=== PATIENT | male | born 1960 | race Hispanic/Latino ===

== ENCOUNTER 2018-02-14 15:04 | Emergency (ER) | payer BC ==
--- OUTSIDE RECORDS SUMMARY | 2018-02-14 15:09 | XMS REPORT ---
:1960 [facility] Address [address] [place] [place] [address] Care Team Providers Name Role Phone JENNY VILLA Unavailable Unavailable Problems This patient has no known problems. Allergies, Adverse Reactions, Alerts This patient has no known allergies or adverse reactions. Medications This patient has no known medications. Results Test Description Test Time Test Comments Text Results Atomic Results Result Comments POCT-GLUCOSE METER 2016-11-27 11:23:00 Test Item Value Reference Range Comments POC-GLUCOSE METER (BEAKER) (test 180 mg/dL 70-110 TESTED AT [address] qsai=7471) [facility] [address] POCT-GLUCOSE [id number] 07:20:00 Test Item Value Reference Range Comments POC-GLUCOSE METER (BEAKER) 206 mg/dL 70-110 TESTED AT [address] (test wuzh=9395) [facility] [address] CBC W/PLT COUNT & AUTO [id number] 06:56:00 Test Item Value Reference Range Comments WHITE BLOOD CELL COUNT (BEAKER) (test lotg=504) 7.9 K/ L 4.0-10.0 RED BLOOD CELL COUNT (BEAKER) (test inuj=874) 5.24 M/ L 4.20-5.80 HEMOGLOBIN (BEAKER) (test kdle=357) 16.1 GM/DL 13.0-16.8 HEMATOCRIT (BEAKER) (test rifd=830) 49.2 % 40.0-50.0 MEAN CORPUSCULAR VOLUME (BEAKER) (test aojb=422) 93.9 fL 82.0-98.0 MEAN CORPUSCULAR HEMOGLOBIN (BEAKER) (test 30.7 pg 27.0-33.0 nxab=931) MEAN CORPUSCULAR HEMOGLOBIN CONC (BEAKER) (test 32.7 GM/DL 32.0-36.0 ijka=559) RED CELL DISTRIBUTION WIDTH (BEAKER) (test 11.9 % 10.3-14.2 guyv=143) PLATELET COUNT (BEAKER) (test zsas=464) 136 K/CU MM 150-430 MEAN PLATELET VOLUME (BEAKER) (test aqch=876) 8.6 fL 6.5-10.5 NUCLEATED RED BLOOD CELLS (BEAKER) (test 0 /100 WBC 0-0 vxio=426) NEUTROPHILS RELATIVE PERCENT (BEAKER) (test 49 % cjep=309) LYMPHOCYTES RELATIVE PERCENT (BEAKER) (test 41 % fzkq=611) MONOCYTES RELATIVE PERCENT (BEAKER) (test 7 % jbld=219) EOSINOPHILS RELATIVE PERCENT (BEAKER) (test 2 % whgj=133) BASOPHILS RELATIVE PERCENT (BEAKER) (test 1 % krsz=266) NEUTROPHILS ABSOLUTE COUNT (BEAKER) (test 3.84 K/ L 1.80-8.00 jkih=453) LYMPHOCYTES ABSOLUTE COUNT (BEAKER) (test 3.27 K/ L 1.48-4.50 krvh=299) MONOCYTES ABSOLUTE COUNT (BEAKER) (test 0.58 K/ L 0.00-1.30 ffwh=445) EOSINOPHILS ABSOLUTE COUNT (BEAKER) (test 0.14 K/ L 0.00-0.50 wwor=548) BASOPHILS ABSOLUTE COUNT (BEAKER) (test 0.07 K/ L 0.00-0.20 fjne=443) 0.00BASI METABOLIC [id number] 06:43:00 Test Item Value Reference Range Comments SODIUM (BEAKER) (test 139 meq/L 136-145 mvca=271) POTASSIUM (BEAKER) (test 4.1 meq/L 3.5-5.1 ctem=186) CHLORIDE (BEAKER) (test 107 meq/L 98-107 jvvn=559) CO2 (BEAKER) (test 24 meq/L 22-29 vzej=822) BLOOD UREA NITROGEN 14 mg/dL 7-21 (BEAKER) (test xcgf=151) CREATININE (BEAKER) (test 0.84 mg/dL 0.57-1.25 xuzn=852) GLUCOSE RANDOM (BEAKER) 230 mg/dL 70-105 (test giea=765) CALCIUM (BEAKER) (test 9.0 mg/dL 8.4-10.2 gkbd=822) EGFR (BEAKER) (test mL/min/1.73 sq m INSUFFICIENT CLINICAL DATA aniy=8033) TO CALCULATE ESTIMATED GFR. POCT-GLUCOSE [id number] 21:38:00 Test Item Value Reference Range Comments POC-GLUCOSE METER (BEAKER) 226 mg/dL 70-110 TESTED AT [facility] [address] [facility] (test ajgo=3123) [facility] [address] CBC W/PLT COUNT & AUTO [id number] 15:49:00 Test Item Value Reference Range Comments WHITE BLOOD CELL COUNT (BEAKER) (test fiju=458) 6.6 K/ L 4.0-10.0 RED BLOOD CELL COUNT (BEAKER) (test egfm=802) 4.76 M/ L 4.20-5.80 HEMOGLOBIN (BEAKER) (test orew=862) 15.4 GM/DL 13.0-16.8 HEMATOCRIT (BEAKER) (test gsml=205) 44.1 % 40.0-50.0 MEAN CORPUSCULAR VOLUME (BEAKER) (test tvdb=433) 92.6 fL 82.0-98.0 MEAN CORPUSCULAR HEMOGLOBIN (BEAKER) (test 32.4 pg 27.0-33.0 bgus=039) MEAN CORPUSCULAR HEMOGLOBIN CONC (BEAKER) (test 34.9 GM/DL 32.0-36.0 asro=623) RED CELL DISTRIBUTION WIDTH (BEAKER) (test 11.7 % 10.3-14.2 dext=779) PLATELET COUNT (BEAKER) (test gywa=434) 122 K/CU MM 150-430 MEAN PLATELET VOLUME (BEAKER) (test oaqw=669) 8.6 fL 6.5-10.5 NUCLEATED RED BLOOD CELLS (BEAKER) (test 0 /100 WBC 0-0 fhwk=446) NEUTROPHILS RELATIVE PERCENT (BEAKER) (test 48 % xptr=923) LYMPHOCYTES RELATIVE PERCENT (BEAKER) (test 44 % lvqi=686) MONOCYTES RELATIVE PERCENT (BEAKER) (test 6 % wgiq=761) EOSINOPHILS RELATIVE PERCENT (BEAKER) (test 1 % ojix=041) BASOPHILS RELATIVE PERCENT (BEAKER) (test 1 % ijje=760) NEUTROPHILS ABSOLUTE COUNT (BEAKER) (test 3.17 K/ L 1.80-8.00 ubra=589) LYMPHOCYTES ABSOLUTE COUNT (BEAKER) (test 2.92 K/ L 1.48-4.50 kpiy=509) MONOCYTES ABSOLUTE COUNT (BEAKER) (test 0.40 K/ L 0.00-1.30 ugkv=275) EOSINOPHILS ABSOLUTE COUNT (BEAKER) (test 0.06 K/ L 0.00-0.50 ycca=877) BASOPHILS ABSOLUTE COUNT (BEAKER) (test 0.07 K/ L 0.00-0.20 kiux=434) 0.00(MANUAL DIFFERENTIAL)2016-11-26 15:49:00 Test Item Value Reference Range Comments TOTAL COUNTED (BEAKER) (test ezuc=4826) WBC MORPHOLOGY (BEAKER) (test cuvn=625) Normal PLT MORPHOLOGY (BEAKER) (test qwqj=945) Normal RBC MORPHOLOGY (BEAKER) (test uqlv=047) Normal HEMOGLOBIN [id number] 13:12:00 Test Item Value Reference Range Comments HEMOGLOBIN A1C (BEAKER) (test gnkp=224) 10.1 % 4.3-6.1 BASIC METABOLIC [id number] 09:47:00 Test Item Value Reference Range Comments SODIUM (BEAKER) (test 137 meq/L 136-145 cmxb=637) POTASSIUM (BEAKER) (test 4.0 meq/L 3.5-5.1 gggp=598) CHLORIDE (BEAKER) (test 105 meq/L 98-107 wkmo=939) CO2 (BEAKER) (test 24 meq/L 22-29 qaih=586) BLOOD UREA NITROGEN 15 mg/dL 7-21 (BEAKER) (test ubwd=513) CREATININE (BEAKER) (test 0.80 mg/dL 0.57-1.25 suxp=148) GLUCOSE RANDOM (BEAKER) 228 mg/dL 70-105 (test oynh=230) CALCIUM (BEAKER) (test 8.8 mg/dL 8.4-10.2 kmng=613) EGFR (BEAKER) (test mL/min/1.73 sq m INSUFFICIENT CLINICAL DATA uztn=2500) TO CALCULATE ESTIMATED GFR. SEDIMENTATION [id number] 09:40:00 Test Item Value Reference Range Comments SEDIMENTATION RATE, ERYTHROCYTE (BEAKER) (test 10 mm/HR 0-20 xhcl=057) POCT-GLUCOSE [id number] 08:03:00 Test Item Value Reference Range Comments POC-GLUCOSE METER (BEAKER) 224 mg/dL 70-110 TESTED AT [facility] [address] (test enbm=8789) [place] [address] VITAMIN B12 AND [id number] 07:49:00 Test Item Value Reference Range Comments VITAMIN B12 (BEAKER) (test gdbn=035) 405 pg/mL 213-816 FOLATE (BEAKER) (test wtxh=504) 8.9 ng/mL >=7.0 Effective 05/28/2014: Folate Reference Range ChangeNew: >=7.0 Previous: & gt;=5.4TSH/FREE T4 IF [id number] 07:37:00 Test Item Value Reference Range Comments THYROID STIMULATING HORMONE (BEAKER) (test 1.28 uIU/mL 0.35-4.94 hiqm=911) LIPID [id number] 06:56:00 Test Item Value Reference Range Comments TRIGLYCERIDES (BEAKER) (test taru=129) 258 mg/dL CHOLESTEROL (BEAKER) (test hqsj=679) 182 mg/dL HDL CHOLESTEROL (BEAKER) (test zurj=333) 24 mg/dL LDL CHOLESTEROL CALCULATED (BEAKER) (test 106 mg/dL eyoq=253) Triglyceride Reference Range: Low Risk <150 Borderline 150- 199 High Risk 200-499 Very High Risk >=500Cholesterol Reference Range: Low Risk <200 Borderline 200-239 High Risk > 240HDL Cholesterol Reference Range: Low Risk >=60 High Risk <40LDL Cholesterol Reference Range: Optimal <100 Near Optimal 100-129 Borderline 130-159 High 160-189 Very High >=190
--- OUTSIDE RECORDS SUMMARY | 2018-02-14 15:09 | XMS REPORT | Clinical Summary ---
:1960 Author Organization [facility] Address [address] [place] [address] Phone Care Team Providers Name Role Phone Unavailable Primary Care Provider Unavailable Allergies No Known Allergies Current Medications No known medications Active Problems Problem Noted Date Essential hypertension 11/27/2016 Type 2 diabetes mellitus without complication (HCC) 11/27/2016 Acute CVA (cerebrovascular accident) (HCC) 11/26/2016 Social History Tobacco Use Types Packs/Day Years Used Date Former Smoker Cigarettes 1 40 07/11/1976 - 11/26/2016 Tobacco Cessation: Counseling Given: Yes Sex Assigned at Date Recorded Not on file Last Filed Vital Signs Not on file Plan of Treatment Not on file Results Not on fileafter 02/13/2017
--- NOTE | 2018-02-14 15:27 | RAD REPORT ---
EXAM DESCRIPTION: CT - Ct Stroke Brain Wo Cont - 02/14/2018 3:18 pm CLINICAL HISTORY: Left-sided numbness COMPARISON: November 2016 TECHNIQUE: Computed axial tomography of the head was obtained. IV contrast was not requested. All CT scans are performed using dose optimization technique as appropriate and may include automated exposure control or mA/KV adjustment according to patient size. FINDINGS: An intracranial bleed is not seen . The ventricles are normal in caliber. No extra-axial fluid collection is noted. Low-density areas are present within the right temporal, right occipital and right parietal lobes. Th ey have the appearance of being chronic. Fluid within the sinuses/ mastoids is not seen. 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 If the patient continues to have symptoms to suggest an acute infarct MRI of the brain would be recom mended. The exam was discussed with Dr. Chase in the emergency room February 14, 2018 3:20 p.m.
[2018-02-14 15:42] LABS: Absolute Monocytes 0.4 K/uL (0.1-1.3); Absolute Neutrophil 4.1 K/uL (1.8-8.0); Basophils % 0.6 % (0-1.3); Eosinophils % 1.2 % (0-4.4); Hematocrit 46.2 % (39.6-49.0); Lymphocytes % 38.8 % (15.3-44.8); MCH 32.4 pg (27.0-35.0); MCV 93.1 fL (80-100); MPV 9.1 fL (7.6-11.3); Monocytes % 4.9 % (3.3-12.3); RBC Red Blood Cell Count 4.96 M/uL (4.33-5.43)
[2018-02-14 15:45] LABS: Protime INR 0.97
[2018-02-14 15:57] LABS: Magnesium 1.6 mg/dL (1.8-2.4); Potassium 3.7 mmol/L (3.5-5.1)
--- NOTE | 2018-02-14 18:14 | RAD REPORT ---
EXAM DESCRIPTION: Tiffanie Single View02/14/2018 3:42 pm CLINICAL HISTORY: Chest pain COMPARISON: November 2016 FINDINGS: The lungs appear clear of acute infiltrate. The heart is normal size IMPRESSION: No acute abnormalities displayed
--- NOTE | 2018-02-14 18:19 | ER ---
Nurse's Notes [facility] Emergency Department Name: Santi Virgen Age: 58 yrs Sex: Male : 1960 Arrival Date: 02/14/2018 Time: 15:06 Bed 16 Private MD: None, None Diagnosis: Transient cerebral ischemic attack, unspecified Presentation: 02/14 15:09 Presenting complaint: Patient states: Sudden dizziness, slurred speech, and left arm hb numbness while driving to work at 0700 today. Hx CVA 1 year ago. Transition of care: patient was not received from another setting of care. 15:09 Method Of Arrival: Ambulatory hb 15:13 An acute neurological deficit is present. The charge nurse has been notified. The hb patients blood glucose was checked before arriving to the hospital and was found to be normal. Onset of symptoms was February 14, 2018 at 07:00. Risk Assessment: Do you want to hurt yourself or someone else? Patient reports no desire to harm self or others. Care prior to arrival: None. 15:13 Acuity: YEMI 2 hb 15:23 Initial Sepsis Screen: Does the patient meet any 2 criteria? No. Patient's initial rb1 sepsis screen is negative. Does the patient have a suspected source of infection? No. Patient's initial sepsis screen is negative. Triage Assessment: 15:23 The onset of the patients symptoms was February 14, 2018 at 07:00. rb1 Stroke Activation: Symptom onset > 6 hours Physician: Stroke Attending; Name: ; Notified At: ; Arrived At: Physician: Chief Stroke Resident; Name: ; Notified At: ; Arrived At: Physician: Stroke Resident; Name: ; Notified At: ; Arrived At: Physician: ED Attending; Name: ; Notified At: ; Arrived At: Physician: ED Resident; Name: ; Notified At: ; Arrived At: Historical: - Allergies: 15:23 No Known Allergies; hb - Home Meds: 15:23 metformin 500 mg Oral tab 2 tabs 2 times per day [Active]; clopidogrel 75 mg oral tab 1 rb1 tab once daily [Active]; atorvastatin 40 mg oral tab 1 tab once daily [Active]; losartan 100 mg oral tab 1 tab once daily [Active]; - PMHx: 15:23 CVA; Diabetes - NIDDM; Hyperlipidemia; Hypertension; hb - PSHx: 15:23 Appendectomy; hb - Immunization history:: Adult Immunizations up to date. - Social history:: Smoking status: Patient/guardian denies using tobacco. - Ebola Screening: : Patient negative for fever greater than or equal to 101.5 degrees Fahrenheit, and additional compatible Ebola Virus Disease symptoms. - Family history:: not pertinent. - Hospitalizations: : No recent hospitalization is reported. Screenin:22 Abuse screen: Denies threats or abuse. Denies injuries from another. Nutritional hb screening: No deficits noted. Tuberculosis screening: No symptoms or risk factors identified. 15:24 Fall Risk Secondary diagnosis (15 points) CVA, IV access (20 points). Ambulatory Aid- rb1 None/Bed Rest/Nurse Assist (0 pts). Gait- Normal/Bed Rest/Wheelchair (0 pts) Mental Status- Oriented to own ability (0 pts). Total Boss Fall Scale indicates Low Risk Score (25-44 pts). Fall prevention measures have been instituted. Side Rails Up X 2 Placed close to Nursing Station 1:1 attendant Assigned to Pt. Frequent Obs/Assesments occuring As available Patient and Family Educated on Fall Prevention Program and strategies. Assessment: 15:10 Reassessment: BGL 143. hb 15:13 Reassessment: Code Stroke called. hb 15:13 Reassessment: Pt transported to CT via wheelchair with ANGELA Ken RN. hb 15:22 Reassessment: Back from CT. Pt reports symptoms have improved greatly and have almost ss resolved. 15:23 Reassessment: Dr. Chase at bedside to assess patient. ss 15:23 General: Appears in no apparent distress. comfortable, Behavior is calm, cooperative. rb1 Pain: Denies pain. Neuro: Level of Consciousness is awake, alert, obeys commands, Oriented to person, place, time, situation, Budget Analyst are equal bilaterally Moves all extremities. Gait is steady, Speech is normal, Facial symmetry appears normal, Pupils are PERRLA, Reports dizziness and numbness to the left arm around 0700 this morning. Pt. stated, "I feel great now. I feel normal.". Cardiovascular: Capillary refill < 3 seconds is brisk in bilateral fingers Rhythm is sinus rhythm. Respiratory: Airway is patent Respiratory effort is even, unlabored, Respiratory pattern is regular, symmetrical. GI: No signs and/or symptoms were reported involving the gastrointestinal system. : No signs and/or symptoms were reported regarding the genitourinary system. Derm: Skin is dry, Skin is normal, Skin temperature is warm. Musculoskeletal: Range of motion: intact in all extremities. 15:23 T-PA (Activase) Screening: Contraindications: Patient reports onset of signs and rb1 symptoms of stroke greater than 6 hours ago: Yes. 15:40 Patient has been NPO before screening. The patient is alert, and able to follow rb1 commands. The patient does not exhibit slurred or garbled speech. The patient is not exhibiting difficulty speaking. The patient does not exhibit difficulty understanding words. The patient is able to swallow own secretions with no drooling or need for suction. Patient tolerated one teaspoon of water. No drooling, immediate coughing, gurgling, or clearing of the throat was noted. The patient tolerated 90mL of water. No drooling, immediate coughing, gurgling, or clearing of the throat was noted. The patient passed the bedside swallow screening. Oral medications may be given as ordered. Contact Physician for further diet orders. Provider notified of bedside swallow screening results: Romain Chase MD. 16:38 Reassessment: Patient appears in no apparent distress at this time. No changes from rb1 previously documented assessment. 17:36 Reassessment: Patient appears in no apparent distress at this time. Patient and/or rb1 family updated on plan of care and expected duration. Pain level reassessed. Patient is alert, oriented x 3, equal unlabored respirations, skin warm/dry/pink. Patient denies pain at this time. Patient states feeling better. 18:26 Reassessment: Patient appears in no apparent distress at this time. No changes from rb1 previously documented assessment. Family at bedside. Vital Signs: 15:11 BP 155 / 93; Pulse 88; Resp 16; Temp 98.2; Pulse Ox 98% ; Pain 0/10; hb 15:23 Weight 83.91 kg; Height 5 ft. 8 in. (172.72 cm) (R); rb1 16:00 BP 140 / 83; Pulse 80; Resp 17; Pulse Ox 97% on R/A; Pain 0/10; rb1 17:00 BP 131 / 79; Pulse 73; Resp 18; Pulse Ox 97% on R/A; rb1 17:30 BP 142 / 82; Pulse 72; Resp 18; Pulse Ox 98% on R/A; Pain 0/10; rb1 18:28 BP 148 / 83; Pulse 69; Resp 17; Pulse Ox 99% on R/A; rb1 15:23 Body Mass Index 28.13 (83.91 kg, 172.72 cm) rb1 [place] Coma Score: 15:23 Eye Response: spontaneous(4). Verbal Response: oriented(5). Motor Response: obeys rb1 commands(6). Total: 15. 16:23 Eye Response: spontaneous(4). Verbal Response: oriented(5). Motor Response: obeys rb1 commands(6). Total: 15. 17:23 Eye Response: spontaneous(4). Verbal Response: oriented(5). Motor Response: obeys rb1 commands(6). Total: 15. 18:23 Eye Response: spontaneous(4). Verbal Response: oriented(5). Motor Response: obeys rb1 commands(6). Total: 15. NIH Stroke Scale Scores: 15:23 NIHSS Score: 0 rb1 ED Course: 15:06 Patient arrived in ED. mr 15:07 None, None is Private Physician. mr 15:13 Romain Chase MD is Attending Physician. rn 15:20 Triage completed. hb 15:20 Inserted saline lock: 22 gauge in left antecubital area, using aseptic technique. Blood ss collected. 15:23 Patient has correct armband on for positive identification. Bed in low position. Call rb1 light in reach. Side rails up X2. appeals referee on. Pulse ox on. NIBP on. 15:23 Arm band placed on left wrist. rb1 15:28 EKG done, by civil engineering technician. reviewed by Romain Chase MD. tc 15:33 Cira Tao, RN is Primary Nurse. rb1 15:43 X-ray completed. Portable x-ray completed in exam room. Patient tolerated procedure bb2 well. 18:29 No provider procedures requiring assistance completed. IV discontinued, intact, rb1 bleeding controlled, No redness/swelling at site. Pressure dressing applied. Administered Medications: No medications were administered Point of Care Testing: Blood Glucose: 15:10 Blood Glucose: 143 mg/dL; hb 15:24 Blood Glucose: 165 mg/dL; rb1 Ranges: Outcome: 18:18 Discharge ordered by . rn 18:29 Discharged to home ambulatory, with family. rb1 18:29 Condition: stable 18:29 Discharge instructions given to patient, Instructed on discharge instructions, follow up and referral plans. Demonstrated understanding of instructions, follow-up care, Prescriptions given X none 18:30 Patient left the ED. rb1 NIH Stroke Scale - NIH Stroke Score Date: 02/14/2018 Time: 15:23 Total Score = 0 1a. Level of Consciousness (LOC) - 0(Alert) 1b. Level of Consciousness (LOC) (Year \\T\\ Age) - 0(Both) 1c. LOC Commands (Open \\T\\ Closes Eyes/Medical Customer Service Representative) - 0(Both) 2. Best Gaze (Lateral Gaze Paresis) - 0(Normal) 3. Visual Field Loss - 0(No visual loss) 4. Facial Palsy - 0(Normal) 5a. Left Arm: Motor (10-second hold) - 0(No drift) 5b. Right Arm: Motor (10-second hold) - 0(No drift) 6a. Left Leg: Motor (5-second hold - always test supine) - 0(No drift) 6b. Right Leg: Motor (5-second hold - always test supine) - 0(No drift) 7. Limb Ataxia (finger/nose \\T\\ heel/saldana - test with eyes open) - 0(Absent) 8. Sensory Loss (pinprick arms/legs/face) - 0(Normal) 9. Best Language: Aphasia (description/naming/reading) - 0(No aphasia) 10. Dysarthria (speech clarity - read or repeat words) - 0(Normal) 11. Extinction and Inattention (visual/tactile/auditory/spatial/personal) - 0(No abnormality) Initials: rb1 Signatures: Nadja Owusu Roman, MD MD rn Smirch, Shelby, RN RN Nisha Bella, public health staff nurse EKG Ttc Cira Tao RN RN rb1 Annette Anderson RN RN hb Annette Haynes2 Corrections: (The following items were deleted from the chart) 15:20 15:11 Presenting complaint: hb hb 15: 15:23 Home Meds: atorvastatin Oral; hb rb1 : 15:23 Home Meds: metformin 500 mg Oral tab 2 times per day; hb rb1
--- NOTE | 2018-02-14 18:19 | EDPHYS ---
Physician Documentation [facility] Name: Santi Virgen Age: 58 yrs Sex: Male : 1960 Arrival Date: 02/14/2018 Time: 15:06 Bed 16 Private MD: None, None ED Physician Romain Chase HPI: 02/14 18:10 This 58 yrs old Male presents to ER via Ambulatory with complaints of Numbness rn Of Arm, Dizziness. 18:11 The patient presents to the emergency department with weakness of the left upper rn extremity, a speech or higher order brain function problem, paresthesias of the left upper extremity. Onset: The symptoms/episode began/occurred this morning. Severity of symptoms: At their worst the symptoms were mild in the emergency department the symptoms have resolved. Current symptoms: Currently, the patient is not experiencing any symptoms. The patient has experienced a previous episode. Reports began this morning with slurred speech, numbness and slight weakness of LUE, + dizziness, similar symptoms to previous TIA, on plavix, now back to normal, asymptomatic. . Historical: - Allergies: 15:23 No Known Allergies; hb - Home Meds: 15:23 metformin 500 mg Oral tab 2 tabs 2 times per day [Active]; clopidogrel 75 mg oral tab 1 rb1 tab once daily [Active]; atorvastatin 40 mg oral tab 1 tab once daily [Active]; losartan 100 mg oral tab 1 tab once daily [Active]; - PMHx: 15:23 CVA; Diabetes - NIDDM; Hyperlipidemia; Hypertension; hb - PSHx: 15:23 Appendectomy; hb - Immunization history:: Adult Immunizations up to date. - Social history:: Smoking status: Patient/guardian denies using tobacco. - Ebola Screening: : Patient negative for fever greater than or equal to 101.5 degrees Fahrenheit, and additional compatible Ebola Virus Disease symptoms. - Family history:: not pertinent. - Hospitalizations: : No recent hospitalization is reported. ROS: 18:11 Constitutional: Negative for fever, chills, and weight loss, Eyes: Negative for injury, rn pain, redness, and discharge, Neck: Negative for injury, pain, and swelling, Cardiovascular: Negative for chest pain, palpitations, and edema, Respiratory: Negative for shortness of breath, cough, wheezing, and pleuritic chest pain, Abdomen/GI: Negative for abdominal pain, nausea, vomiting, diarrhea, and constipation, MS/Extremity: Negative for injury and deformity, Skin: Negative for injury, rash, and discoloration, Neuro: Negative for headache, weakness, numbness, tingling, and seizure. Exam: 18:16 Constitutional: This is a well developed, well nourished patient who is awake, alert, rn and in no acute distress. Head/Face: Normocephalic, atraumatic. Eyes: Pupils equal round and reactive to light, extra-ocular motions intact. Lids and lashes normal. Conjunctiva and sclera are non-icteric and not injected. Cornea within normal limits. Periorbital areas with no swelling, redness, or edema. Neck: Trachea midline, no thyromegaly or masses palpated, and no cervical lymphadenopathy. Supple, full range of motion without nuchal rigidity, or vertebral point tenderness. No Meningismus. Cardiovascular: Regular rate and rhythm with a normal S1 and S2. No gallops, murmurs, or rubs. Normal PMI, no JVD. No pulse deficits. Respiratory: Lungs have equal breath sounds bilaterally, clear to auscultation and percussion. No rales, rhonchi or wheezes noted. No increased work of breathing, no retractions or nasal flaring. Abdomen/GI: Soft, non-tender, with normal bowel sounds. No distension or tympany. No guarding or rebound. No evidence of tenderness throughout. Skin: Warm, dry with normal turgor. Normal color with no rashes, no lesions, and no evidence of cellulitis. MS/ Extremity: Pulses equal, no cyanosis. Neurovascular intact. Full, normal range of motion. Equal circumference. Neuro: Awake and alert, GCS 15, oriented to person, place, time, and situation. Cranial nerves II-XII grossly intact. Motor strength 5/5 in all extremities. Sensory grossly intact. Cerebellar exam normal. Normal gait. Vital Signs: 15:11 BP 155 / 93; Pulse 88; Resp 16; Temp 98.2; Pulse Ox 98% ; Pain 0/10; hb 15:23 Weight 83.91 kg; Height 5 ft. 8 in. (172.72 cm) (R); rb1 16:00 BP 140 / 83; Pulse 80; Resp 17; Pulse Ox 97% on R/A; Pain 0/10; rb1 17:00 BP 131 / 79; Pulse 73; Resp 18; Pulse Ox 97% on R/A; rb1 17:30 BP 142 / 82; Pulse 72; Resp 18; Pulse Ox 98% on R/A; Pain 0/10; rb1 18:28 BP 148 / 83; Pulse 69; Resp 17; Pulse Ox 99% on R/A; rb1 15:23 Body Mass Index 28.13 (83.91 kg, 172.72 cm) rb1 NIH Stroke Scale Scores: 15:23 NIHSS Score: 0 rb1 Brandon Coma Score: 15:23 Eye Response: spontaneous(4). Verbal Response: oriented(5). Motor Response: obeys rb1 commands(6). Total: 15. 16:23 Eye Response: spontaneous(4). Verbal Response: oriented(5). Motor Response: obeys rb1 commands(6). Total: 15. 17:23 Eye Response: spontaneous(4). Verbal Response: oriented(5). Motor Response: obeys rb1 commands(6). Total: 15. 18:23 Eye Response: spontaneous(4). Verbal Response: oriented(5). Motor Response: obeys rb1 commands(6). Total: 15. MDM: 15:13 Patient medically screened. rn 15:33 ED course: NIH 0, back to normal, noticed onset 7-8AM today. NO TPA.. rn 18:16 Data reviewed: vital signs, nurses notes, lab test result(s), EKG, radiologic studies, rn and as a result, I will discharge patient. Counseling: I had a detailed discussion with the patient and/or guardian regarding: the historical points, exam findings, and any diagnostic results supporting the discharge/admit diagnosis, lab results, radiology results, the need for outpatient follow up, to return to the emergency department if symptoms worsen or persist or if there are any questions or concerns that arise at home. Response to treatment: the patient's symptoms have resolved after treatment, the patient's condition has returned to base line, the patient is now symptom free, and as a result, I will discharge patient. Special discussion: I discussed with the patient/guardian in detail that at this point there is no indication for admission to the hospital. It is understood, however, that if the symptoms persist or worsen the patient needs to return immediately for re-evaluation. Based on the history and exam findings, there is no indication for further emergent testing or inpatient evaluation. I discussed with the patient/guardian the need to see the neurologist for further evaluation of the symptoms. I discussed with the patient/guardian the need to see the primary care provider for further evaluation of the symptoms. ED course: Offered admission/transfer for TIA, patient states doesn't think there is a benefit, is already on plavix, and had complete w/u less than 1 year ago, return precautions given and understood, especially need to return in TPA window if happens again, he assures me will make appt with his pcp and neuro this week. Checked on different occasion and still wants to go home instead of admission, understands risks and benefits.. 02/14 15:14 Order name: Magnesium rn 02/14 15:14 Order name: Troponin (emerg Dept Use Only) rn 02/14 15:14 Order name: Basic Metabolic Panel rn 02/14 15:14 Order name: CBC with Diff rn 02/14 15:14 Order name: Protime (+inr) rn 02/14 15:14 Order name: Ptt, Activated rn 02/14 15:17 Order name: Glucose, Ancillary Testing; Complete Time: 17:35 EDMS 02/14 15:44 Order name: CBC with Automated Diff; Complete Time: 17:35 EDMS 02/14 15:46 Order name: Protime (+INR); Complete Time: 17:35 EDMS 02/14 15:46 Order name: PTT, Activated Partial Thromb; Complete Time: 17:35 EDMS 02/14 15:52 Order name: Troponin (Emerg Dept Use Only); Complete Time: 17:35 EDMS 02/14 15:57 Order name: Basic Metabolic Panel; Complete Time: 17:35 EDMS 02/14 15:57 Order name: Magnesium; Complete Time: 17:35 EDMS 02/14 15:14 Order name: CT Stroke Brain w/o Contrast rn 02/14 15:14 Order name: Stroke CXR 1 View rn 02/14 15:14 Order name: EKG; Complete Time: 15:14 rn 02/14 15:14 Order name: Accucheck; Complete Time: 15:28 rn 02/14 15:14 Order name: Cardiac monitoring; Complete Time: 15:29 rn 02/14 15:14 Order name: EKG - Nurse/Tech; Complete Time: 15:28 rn 02/14 15:14 Order name: IV Saline Lock; Complete Time: 15:28 rn 02/14 15:14 Order name: Labs collected and sent; Complete Time: 15:28 rn 02/14 15:14 Order name: NPO; Complete Time: 18:00 rn 02/14 15:14 Order name: O2 Per Protocol; Complete Time: 15:28 rn 02/14 15:14 Order name: O2 Sat Monitoring; Complete Time: 15:28 rn 02/14 15:14 Order name: Stroke Swallow Screen; Complete Time: 15:55 rn 02/14 15:28 Order name: CT; Complete Time: 17:35 EDMS 02/14 16:47 Order name: Glucose, Ancillary Testing; Complete Time: 17:35 EDMS 02/14 18:14 Order name: RAD; Complete Time: 18:19 EDMS Administered Medications: No medications were administered Point of Care Testing: Blood Glucose: 15:10 Blood Glucose: 143 mg/dL; hb 15:24 Blood Glucose: 165 mg/dL; rb1 Ranges: Critical Glucose Levels:Adult <50 mg/dl or >400 mg/dl <40 mg/dl or >180 mg/dl Disposition: 02/14/18 18:18 Discharged to Home. Impression: Transient cerebral ischemic attack, unspecified. - Condition is Stable. - Discharge Instructions: Stroke Prevention, Transient Ischemic Attack. - Medication Reconciliation Form, Thank You Letter, Antibiotic Education, Prescription Opioid Use form. - Follow up: Private Physician; When: 2 - 3 days; Reason: Recheck today's complaints, Re-evaluation by your physician. - Problem is new. - Symptoms have improved. NIH Stroke Scale - NIH Stroke Score Date: 02/14/2018 Time: 15:23 Total Score = 0 1a. Level of Consciousness (LOC) - 0(Alert) 1b. Level of Consciousness (LOC) (Year \T\ Age) - 0(Both) 1c. LOC Commands (Open \T\ Closes Eyes/Tower Helper) - 0(Both) 2. Best Gaze (Lateral Gaze Paresis) - 0(Normal) 3. Visual Field Loss - 0(No visual loss) 4. Facial Palsy - 0(Normal) 5a. Left Arm: Motor (10-second hold) - 0(No drift) 5b. Right Arm: Motor (10-second hold) - 0(No drift) 6a. Left Leg: Motor (5-second hold - always test supine) - 0(No drift) 6b. Right Leg: Motor (5-second hold - always test supine) - 0(No drift) 7. Limb Ataxia (finger/nose \T\ heel/saldana - test with eyes open) - 0(Absent) 8. Sensory Loss (pinprick arms/legs/face) - 0(Normal) 9. Best Language: Aphasia (description/naming/reading) - 0(No aphasia) 10. Dysarthria (speech clarity - read or repeat words) - 0(Normal) 11. Extinction and Inattention (visual/tactile/auditory/spatial/personal) - 0(No abnormality) Initials: rb1 Signatures: Dispatcher [employer] EDMS Romain Chase MD MD rn Barber, Rebecca, RN RN rb1 Annette Anderson RN RN hb Corrections: (The following items were deleted from the chart) 15:40 15:23 Home Meds: atorvastatin Oral; rb1 15:40 15:23 Home Meds: metformin 500 mg Oral tab 2 times per day; rb1 18:30 18:18 02/14/2018 18:18 Discharged to Home. Impression: Transient cerebral rb1 ischemic attack, unspecified. Condition is Stable. Forms are Medication Reconciliation Form, Thank You Letter, Antibiotic Education, Prescription Opioid Use. Follow up: Private Physician; When: 2 - 3 days; Reason: Recheck today's complaints, Re-evaluation by your physician. Problem is new. Symptoms have improved. rn
--- NOTE | 2018-02-14 18:19 | EKG ---
Test Date: 2018-02-14 Test Time: 15:22:31 Manager Post: NASEEM/T MEASUREMENT RESULTS: Intervals: Rate: 82 MD: 192 QRSD: 100 QT: 362 QTc: 422 [place]: P: 47 MD: 192 QRS: 48 T: 43 INTERPRETIVE STATEMENTS: Normal sinus rhythm Normal ECG Compared to ECG 11/25/2016 19:42:23 No significant changes Electronically Signed On 02-14-18 18:18:54 CDT by Reyes Gaytan
== END 2018-02-14 18:30 | disposition home or self-care (01) ==
LOC: ER 15:04
DX: G45.9 Transient cerebral ischemic attack, unspecified (principal); I10 Essential (primary) hypertension; E78.5 Hyperlipidemia, unspecified; E11.9 Type 2 diabetes mellitus without complications; Z86.73 Personal history of transient ischemic attack (TIA), and cerebral infarction without residual deficits
CPT/HCPCS: 36415; 70450; 71045; 80048; 82962; 83735; 84484; 85025; 85610; 85730; 93005; 99284